=== PATIENT | male | born 2005 | race Two or more races ===

== ENCOUNTER 2025-05-10 08:39 | Emergency (ER) | payer OTHER, SELFPAY ==
[~2025-05-10] VITALS: Ht 193 cm; Wt 105.0 kg
[2025-05-10 08:41] VITALS: BP 135/62; TEMP 97.2; O2SAT 100
[2025-05-10] MEDS ORDERED: dayquil PO (08:50)
[2025-05-10] MEDS ORDERED: nyquil PO (08:50)
[2025-05-10] MEDS ORDERED: VENTAER INH (19:11)
[2025-05-10] MEDS ORDERED: NAPR-837 PO (19:11)
== END 2025-05-10 10:13 | disposition left against medical advice (07) ==
LOC: M ED 08:39
DX: Z53.21 Procedure and treatment not carried out due to patient leaving prior to being seen by health care provider (principal)

== ENCOUNTER 2025-05-10 13:06 | Emergency (ER) | payer OTHER, SELFPAY ==
[~2025-05-10] VITALS: Ht 193 cm; Wt 106.7 kg
[~2025-05-10 13:06] MED LIST: dayquil PO; nyquil PO
[2025-05-10] MEDS ORDERED: NAPR-837 PO (19:11)
[2025-05-10] MEDS ORDERED: VENTAER INH (19:11)
[2025-05-10 19:17] VITALS: BP 128/74; TEMP 98.4; O2SAT 100
== END 2025-05-10 19:19 | disposition home or self-care (01) ==
LOC: M ED 13:06
DX: J06.9 Acute upper respiratory infection, unspecified (principal); M94.0 Chondrocostal junction syndrome [Tietze]; B34.8 Other viral infections of unspecified site; Z90.49 Acquired absence of other specified parts of digestive tract; Z88.0 Allergy status to penicillin; Z79.52 Long term (current) use of systemic steroids; Z79.899 Other long term (current) drug therapy